=== PATIENT | male | born 1945 | race African-American/Black ===

== ENCOUNTER 2016-07-25 03:40 | Emergency (ER) | payer OTHER, MEDICAID ==
[~2016-07-25] VITALS: Ht 177.8 cm; Wt 88.0 kg
[~2016-07-25 03:40] MED LIST: ASPI-1035 PO; GLIPIZIDE PO; KEPP500 PO; LISI-604 PO; METFORMIN PO
[2016-07-25] MEDS ORDERED: SODIUM CHLORIDE 0.9% 1,000 ML IV ONE (05:26)
[2016-07-25] MEDS ORDERED: LEVETIRACETAM 500MG PREMIX 100 ML IV ONE (05:30)
[2016-07-25 06:02] LABS: BASOPHILS % 0.9 % (0.0-2.0); EOSINOPHILS % 0.9 % (0.0-5.0); HEMATOCRIT. 39.9 % (42.0-52.0); HEMOGLOBIN. 12.8 g/dL (14.0-18.0); LYMPHOCYTES % 25.2 % (20.0-50.0); MEAN CORPUSCULAR HGB CONC 32.2 g/dL (31.0-37.0); MEAN CORPUSCULAR VOLUME 83.9 fL (80.0-94.0); MEAN PLATELET VOLUME 9.9 fl (7.4-10.4); MONOCYTES % 7.3 % (2.0-8.0); NEUTROPHILS % 65.7 % (40.0-76.0); PLATELET 119 x1000/uL (130-400); RED BLOOD CELL COUNT 4.76 mill/uL (4.7-6.1); RED CELL DISTRIBUTION WIDTH 15.9 % (11.6-14.6)
[2016-07-25 06:13] LABS: ALBUMIN 3.4 g/dL (3.4-5.0); ANION GAP 13; CALCIUM 8.3 mg/dL (8.5-10.1); CARBON DIOXIDE 25 mEq/L (21-32); CHLORIDE 107 mEq/L (98-107); UREA NITROGEN BLOOD 14 mg/dL (7-21); eGFR > 60 mL/min (>60)
[2016-07-25 06:14] LABS: ALANINE AMINOTRANSFERASE 16 IU/L (13-61); INDEX HEMOLYSI 1 (1-3); INDEX ICTERIC 1 (1-4); INDEX LIPEMIC 1 (1-3); TROPONIN I < 0.02 ng/mL (0.00-0.04)
[2016-07-25 07:13] VITALS: BP 140/66
== END 2016-07-25 07:40 | disposition home or self-care (01) ==
LOC: ER 03:48
DX: E11.65 Type 2 diabetes mellitus with hyperglycemia (principal); F12.10 Cannabis abuse, uncomplicated; Z79.82 Long term (current) use of aspirin; Z79.84 Long term (current) use of oral hypoglycemic drugs
CPT/HCPCS: 36415; 70450; 71010; 80053; 84484; 85025; 93005; 99285; J7030

== ENCOUNTER 2018-08-11 00:03 | Emergency (ER) | payer MEDICAID, OTHER ==
[~2018-08-11] VITALS: Ht 182.9 cm; Wt 100.0 kg
[~2018-08-11 00:03] MED LIST changes: -ASPI-1035 PO; +ASPI-1159 PO
[2018-08-11] MEDS ORDERED: LEVETIRACETAM 500MG PREMIX 100 ML IV ONE (00:45)
[2018-08-11 02:11] VITALS: BP 141/73
== END 2018-08-11 03:44 | disposition home or self-care (01) ==
LOC: ER 00:03
DX: G40.909 Epilepsy, unspecified, not intractable, without status epilepticus (principal); E11.9 Type 2 diabetes mellitus without complications; Z79.84 Long term (current) use of oral hypoglycemic drugs
CPT/HCPCS: 96365; 99283; J1953

== ENCOUNTER 2019-11-18 10:56 | Inpatient (IN) | payer MEDICARE, MEDICAID ==
[~2019-11-18] VITALS: Ht 254 cm; Wt 75.7 kg
[~2019-11-18 10:56] MED LIST changes: -ASPI-1159 PO; +ASPI-1497 PO
[2019-11-18] MEDS ORDERED: LEVETIRACETAM 1000MG/100ML 100 ML IV ONE (11:45)
[2019-11-18] MEDS ORDERED: LORAZEPAM 2MG/ML CPJ IV ONE ×2 (11:45→16:45)
[2019-11-18] MEDS ORDERED: SODIUM CHLORIDE 0.9% 1,000 ML IV ONE (11:48)
[2019-11-18 12:06] LABS: BASOPHILS % 0.5 % (0.0-2.0); HEMOGLOBIN. 12.8 g/dL (14.0-18.0); MEAN CORPUSCULAR HEMOGLOBIN 26.9 pg (28.0-32.0); MEAN CORPUSCULAR VOLUME 86.2 fL (80.0-94.0); MEAN PLATELET VOLUME 10.8 fl (7.4-10.4); MONOCYTES % 7.4 % (2.0-8.0); NEUTROPHILS % 65.1 % (40.0-76.0); PLATELET 103 x1000/uL (130-400); RED BLOOD CELL COUNT 4.76 mill/uL (4.7-6.1); RED CELL DISTRIBUTION WIDTH 14.9 % (11.6-14.6)
[2019-11-18 12:16] LABS: CHLORIDE 107 mEq/L (98-107)
[2019-11-18 12:19] LABS: CLARITY URINE CLEAR (CLEAR); COLOR URINE YELLOW (YELLOW); KETONES URINE 1+ (NEGATIVE); LEUKOCYTE ESTERASE URINE NEGATIVE (NEGATIVE); NITRITE URINE NEGATIVE (NEGATIVE); OCCULT BLOOD URINE NEGATIVE (NEGATIVE); PROTEIN URINE 1+ (NEGATIVE); SPECIFIC GRAVITY URINE 1.038 (1.005-1.030); UROBILINOGEN URINE 0.2 E.U./dL (0.2-1.0)
[2019-11-18 12:43] LABS: *AMPHETAMINES SCREEN URINE NEGATIVE (NEGATIVE); *COCAINE SCREEN URINE NEGATIVE (NEGATIVE); METHADONE URINE SCREEN NEGATIVE (NEGATIVE); OPIATES URINE SCREEN NEGATIVE (NEGATIVE)
[2019-11-18 12:44] LABS: CANNABINOID URINE SCREEN PRESUMTIVE POSITIVE (NEGATIVE); PHENCYCLIDINE URINE SCREEN NEGATIVE (NEGATIVE)
[2019-11-18 12:50] LABS: *BENZODIAZEPINES SCREEN URINE NEGATIVE (NEGATIVE)
[2019-11-18 12:52] LABS: *BARBITURATES SCREEN URINE NEGATIVE (NEGATIVE)
[2019-11-18] MEDS ORDERED: CEFTRIAXONE 1 G PREMIX 50 ML IV ONE (14:00)
[2019-11-18] MEDS ORDERED: OLANZAPINE 10 MG/VIAL IM ONE (17:30)
[2019-11-18 21:26] VITALS: BP 132/67
[2019-11-18] MEDS ORDERED: DEXTROSE 50% WATER 50ML SYRINGE IV PRN (21:45)
[2019-11-18] MEDS ORDERED: DIPHENHYDRAMINE 50MG/ML VIAL IV PRN (21:45)
[2019-11-18] MEDS ORDERED: CLONIDINE 0.1MG TABLET PO PRN (21:45)
[2019-11-18] MEDS ORDERED: MAGNESIUM/ALUMINUM HYDROXIDE/SIMETHICONE 30ML UDC PO PRN (21:45)
[2019-11-18] MEDS ORDERED: HYDRALAZINE 20MG/ML VIAL IV PRN (21:45)
[2019-11-18] MEDS ORDERED: ACETAMINOPHEN 325MG TABLET PO PRN (21:45)
[2019-11-18] MEDS ORDERED: ONDANSETRON HCL 4MG/2ML INJ IV PRN (21:45)
[2019-11-18] MEDS ORDERED: LORAZEPAM 2MG/ML CPJ IV PRN (21:45)
[2019-11-18] MEDS ORDERED: MORPHINE SULFATE 2 MG/ML CPJ (NOT FOR IM USE) IV PRN (21:45)
[2019-11-18] MEDS ORDERED: DOCUSATE SODIUM 100MG CAPSULE PO PRN (21:45)
[2019-11-18] MEDS ORDERED: IPRATROPIUM/ALBUTEROL 0.5-3(2.5)MG/3ML NEB HHN PRN (21:45)
[2019-11-18] MEDS ORDERED: HYDROCODONE/ACETAMINOPHEN 10/325MG TABLET PO PRN (21:45)
[2019-11-18] MEDS ORDERED: GUAIFENESIN 200MG/10ML SUGAR FREE UDC PO PRN (21:45)
[2019-11-18 22:17] VITALS: BP 132/67
[2019-11-18] MEDS ORDERED: METF-415 PO (22:57)
[2019-11-18] MEDS: SODIUM CHLORIDE 0.9% INJ 3ML FLUSH IVF SCH (23:44)
[2019-11-18] MEDS: ENOXAPARIN 40MG/0.4ML SYR SUBCUT SCH (23:44)
[2019-11-19] VITALS: BP 121/54
[2019-11-19 04:00] VITALS: BP 129/66
[2019-11-19] MEDS: BLOOD SUGAR DIAGNOSTIC STRIP TEST SCH ×4 (05:24→21:05)
[2019-11-19] MEDS: SODIUM CHLORIDE 0.9% INJ 3ML FLUSH IVF SCH ×3 (05:59→21:06)
[2019-11-19 07:27] LABS: BASOPHILS % 0.6 % (0.0-2.0); HEMATOCRIT. 41.8 % (42.0-52.0); HEMOGLOBIN. 13.5 g/dL (14.0-18.0); LYMPHOCYTES % 32.2 % (20.0-50.0); MEAN CORPUSCULAR HEMOGLOBIN 27.2 pg (28.0-32.0); MEAN CORPUSCULAR VOLUME 84.1 fL (80.0-94.0); MEAN PLATELET VOLUME 10.7 fl (7.4-10.4); MONOCYTES % 8.2 % (2.0-8.0); PLATELET 82 x1000/uL (130-400); RED BLOOD CELL COUNT 4.97 mill/uL (4.7-6.1); RED CELL DISTRIBUTION WIDTH 14.7 % (11.6-14.6)
[2019-11-19 07:47] LABS: CHLORIDE 110 mEq/L (98-107)
[2019-11-19 08:00] VITALS: BP 123/55
[2019-11-19] MEDS: LEVETIRACETAM 500MG TABLET PO SCH ×2 (09:08→21:06)
[2019-11-19 12:00] VITALS: BP 121/63
[2019-11-19 16:00] VITALS: BP 131/66
[2019-11-19 20:00] VITALS: BP 138/69
[2019-11-19] MEDS: ENOXAPARIN 40MG/0.4ML SYR SUBCUT SCH (21:06)
[2019-11-20] VITALS: BP 122/68
[2019-11-20 04:00] VITALS: BP 127/63
[2019-11-20] MEDS: SODIUM CHLORIDE 0.9% INJ 3ML FLUSH IVF SCH (06:33)
[2019-11-20] MEDS: BLOOD SUGAR DIAGNOSTIC STRIP TEST SCH ×2 (06:33→11:45)
[2019-11-20 07:05] LABS: BASOPHILS % 0.5 % (0.0-2.0); EOSINOPHILS % 0.1 % (0.0-5.0); HEMATOCRIT. 37.8 % (42.0-52.0); HEMOGLOBIN. 12.4 g/dL (14.0-18.0); LYMPHOCYTES % 40.1 % (20.0-50.0); MEAN CORPUSCULAR HEMOGLOBIN 27.5 pg (28.0-32.0); MEAN CORPUSCULAR VOLUME 83.5 fL (80.0-94.0); MEAN PLATELET VOLUME 10.4 fl (7.4-10.4); MONOCYTES % 12.6 % (2.0-8.0); NEUTROPHILS % 46.7 % (40.0-76.0); PLATELET 98 x1000/uL (130-400); RED BLOOD CELL COUNT 4.52 mill/uL (4.7-6.1); RED CELL DISTRIBUTION WIDTH 13.9 % (11.6-14.6)
[2019-11-20 08:00] VITALS: BP 126/69
[2019-11-20] MEDS: LEVETIRACETAM 500MG TABLET PO SCH (09:40)
[2019-11-20 12:00] VITALS: BP 142/81
[2019-11-20 14:28] VITALS: BP 142/81
== END 2019-11-20 14:40 | disposition home or self-care (01) | DRG 101 ==
LOC: ER 10:56 → 5WST 17:56 → EDBEDREQ 17:58 → ENRESERV 20:07
PROVIDERS: ADMIT Internal Medicine; ATTEND Internal Medicine
DX: R56.9 Unspecified convulsions (principal); D69.6 Thrombocytopenia, unspecified; E11.9 Type 2 diabetes mellitus without complications; I10 Essential (primary) hypertension; R90.82 White matter disease, unspecified; F12.90 Cannabis use, unspecified, uncomplicated; Z86.73 Personal history of transient ischemic attack (TIA), and cerebral infarction without residual deficits; Z79.899 Other long term (current) drug therapy
CPT/HCPCS: 36415; 80053; 80305; 81003; 82962; 83036; 85025; 93005; 96365; 99291; J0696; J1650; J1953; J2060; J3490; J7030